=== PATIENT | male | born 1955 | race Caucasian/White ===

== ENCOUNTER 2021-06-08 08:05 | Outpatient (CLI) | payer OTHER ==
[2021-06-08 15:13] LABS: ALBUMIN 4.4 g/dL (3.2-5.5); ALBUMIN/GLOBULIN RATIO 1.9 (1.0-2.2); ALKALINE PHOSPHATASE 42 IU/L (42-121); ALT ALANINE AMINOTRANSFERASE 22 IU/L (10-60); AST ASPARTATE AMINOTRANSFERASE 20 IU/L (10-42); BILIRUBIN,TOTAL 0.9 mg/dL (0.2-1.0); BUN - BLOOD UREA NITROGEN 19 mg/dL (6-20); CALCIUM 9.3 mg/dL (8.5-10.3); CARBON DIOXIDE - CO2 22 mmol/L (21-32); CHLORIDE 108 mmol/L (101-111); CREATININE 0.8 mg/dL (0.6-1.2); CRP HIGH SENSITIVITY < 0.5 mg/L; GFR - MDRD 96 (>89); GLUCOSE 113 mg/dL (70-100); SODIUM 138 mmol/L (135-145); TOTAL PROTEIN 6.7 g/dL (6.7-8.2)
[2021-06-08 15:20] LABS: BASOPHILS % (AUTO) 0.8 %; EOSINOPHILS # (AUTO) 0.2 10^3/uL (0.0-0.7); HCT - HEMATOCRIT 41.9 % (42.0-52.0); LYMPHOCYTES % (AUTO) 19.4 %; MEAN CORPUSCULAR HGB CONC 35.8 g/dL (32.0-36.0); MEAN CORPUSCULAR VOLUME 92.1 fL (80.0-94.0); MEAN PLATELET VOLUME 9.7 fL (7.4-11.4); MONOCYTES # (AUTO) 0.4 10^3/uL (0.0-1.0); NEUTROPHILS # (AUTO) 3.7 10^3/uL (1.5-6.6); NEUTROPHILS % (AUTO) 69.4 %; PLT - PLATELET COUNT 217 10^3/uL (130-450); RED BLOOD COUNT 4.55 10^6/uL (4.70-6.10); RED CELL DISTRIBUTION WIDTH 12.5 % (12.0-15.0); WHITE BLOOD COUNT 5.3 x10^3/uL (4.8-10.8)
[2021-06-08 17:09] LABS: ESTIMATED AVERAGE GLUCOSE 108 mg/dL (70-100); HEMOGLOBIN A1c% 5.4 % (4.27-6.07)
[2021-06-09 13:11] LABS: HOMOCYSTEINE 8.9 umol/L (<11.4)
[2021-06-12 21:57] LABS: HDL LARGE 6475 nmol/L (>6729); LDL MEDIUM 275 nmol/L (<215); LDL PARTICLE NUMBER 1402 nmol/L (<1138); LDL PATTERN A Pattern (A); LDL PEAK SIZE 221.1 Angstrom (>222.9); LDL SMALL 235 nmol/L (<142)
== END 2021-06-08 08:06 | disposition home or self-care (01) ==
LOC: LAB.S 08:05
DX: E78.2 Mixed hyperlipidemia (principal); R73.9 Hyperglycemia, unspecified; G47.33 Obstructive sleep apnea (adult) (pediatric); I25.10 Atherosclerotic heart disease of native coronary artery without angina pectoris; Z95.5 Presence of coronary angioplasty implant and graft; R12 Heartburn
CPT/HCPCS: 36415; 80053; 80061; 81599; 82306; 82542; 83036; 83090; 83525; 83704; 85025; 86141

== ENCOUNTER 2023-06-07 07:00 | Outpatient (CLI) | payer OTHER ==
--- NOTE | 2023-06-07 12:15 | XRAY Report ---
PROCEDURE: Chest 2V INDICATIONS: FOCAL PNEUMONIA TECHNIQUE: 2 views of the chest were acquired. COMPARISON: None. FINDINGS: Surgical changes and devices: None. Lungs and pleura: No pleural effusions or pneumothorax. Lungs are clear. Mediastinum: Mediastinal contours appear normal. Heart size is normal. Bones and chest wall: No suspicious bony lesions. Overlying soft tissues appear unremarkable. IMPRESSION: No acute cardiopulmonary process. Reviewed by: Stan Berry MD on 06/07/2023 12:13 PM PDT Approved by: Stan Berry MD on 06/07/2023 12:13 PM PDT Station ID: [id number]
== END 2023-06-07 23:59 | disposition home or self-care (01) ==
LOC: DI.S 07:00
PROVIDERS: ATTEND Emergency Medicine
DX: Z08 Encounter for follow-up examination after completed treatment for malignant neoplasm (principal); Z87.01 Personal history of pneumonia (recurrent)